=== PATIENT | female | born 1990 | race Caucasian/White ===

== ENCOUNTER 2022-11-10 14:40 | Outpatient (REF) | payer MEDICAID, SELFPAY ==
[2022-11-10 20:03] LABS: Free T4 (Free Thyroxine) 0.87 ng/dL (0.71-1.85); Thyroid Stimulating Hormone 0.98 uIU/mL (0.32-4.0)
== END 2022-11-10 14:41 | disposition home or self-care (01) ==
LOC: HO.MANLDS 14:40
PROVIDERS: Visit Provider Physician Assistant
DX: D64.9 Anemia, unspecified (principal); Z83.49 Family history of other endocrine, nutritional and metabolic diseases
CPT/HCPCS: 36415; 84439; 84443; 86900; 86901

== ENCOUNTER → 2023-12-17 13:51 | Outpatient (BNVA) | payer SELFPAY | PROVIDERS: PCP Internal Medicine; Visit Provider Physician Assistant | DX: Z02.1 Encounter for pre-employment examination (principal) ==

== ENCOUNTER 2024-12-14 16:21 | Outpatient (REF) | payer SELFPAY ==
[2024-12-14 18:35] LABS: MANUAL DIFF FLAG NO
[2024-12-14 18:49] LABS: Basophils Absolute Auto 0.1 X10*3/uL (0.0-0.2); Basophils Percent Auto 0.6 % (0-2); Eosinophils Absolute Auto 0.2 X10*3/uL (0.0-0.4); Eosinophils Percent Auto 1.7 % (0-4); Hematocrit 41.1 % (37.0-47.0); Hemoglobin 13.4 g/dl (12.0-16.0); Imm Gran Abs Auto 0.03 X10*3/uL (0.00-0.03); Imm Gran Pct Auto 0.3 % (0.0-0.4); Lymphocytes Absolute Auto 2.8 X10*3/uL (1.2-4.9); Lymphocytes Percent Auto 32.1 % (20-40); Mean Corpuscular HGB Conc 32.6 g/dl (31.0-35.0); Mean Corpuscular Hemoglobin 29.7 pg (27.0-33.0); Mean Corpuscular Volume 91.1 fL (80.0-98.0); Mean Platelet Volume 9.6 fL (9.4-12.3); Monocytes Absolute Auto 0.7 X10*3/uL (0.1-1.2); Monocytes Percent Auto 8.2 % (2-11); Neutrophils Percent Auto 57.1 % (45-73); Platelet Count 381 X10*3/uL (160-400); Red Blood Count 4.51 X10*6/uL (4.20-5.50); Red Cell Distribution Width 13.4 % (11.0-16.0); White Blood Count 8.8 X10*3/uL (4.8-10.8)
[2024-12-14 18:53] LABS: Estimated Average Glucose 105 mg/dL; Hemoglobin A1c % 5.3 % (<6.0)
[2024-12-14 19:01] LABS: Alanine Aminotransferase 22 U/L (0-31); Albumin Level 4.3 g/dL (3.5-5.0); Alkaline Phosphatase 82 U/L (39-117); Anion Gap 12 (12-20); Aspartate Amino Transferase 25 U/L (5-31); Bilirubin Total 0.2 mg/dL (0.0-1.0); Blood Urea Nitrogen 12 mg/dL (9-16); Calcium 9.3 mg/dL (8.4-10.2); Carbon Dioxide 25 mmol/L (22-29); Chloride 106 mmol/L (96-108); Estimated Glomerular Filt Rate > 60; Glucose Random 87 mg/dL (60-115); Iron 80 mcg/dL (30-160); Percent Iron Saturation 24 % (15-50); Potassium 3.5 mmol/L (3.3-5.1); Sodium 139 mmol/L (135-145); Total Iron Binding Capacity 329 mcg/dL (228-428); Total Protein 7.7 g/dL (6.5-8.0); Unsaturated Iron Binding 249 ug/dL
[2024-12-14 19:20] LABS: Ferritin 16 ng/mL (10-122); Thyroid Stimulating Hormone 1.89 uIU/mL (0.32-4.0)
--- OUTSIDE RECORDS SUMMARY | 2024-12-14 19:42 | XMS_ITS | Patient Health Record ---
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 Name Role Phone BOBBY MELGAR Unavailable [phone] CAREN COULTER Unavailable [phone] IWLLIAM CRAIN Unavailable [phone] RONNIE SCHAFER Unavailable [phone] Thiago Padilla Unavailable [phone] Allergies Allergen (clinical drug ingredient) Drug/Non Drug Allergy documented on EMR Reaction Allergy Type Onset Date Status Rabbit dander Rabbit dander (uncoded) Unknown Allergy Active Cat dander Cat Dander Unknown Allergy Active Dust Mites Unknown Allergy Active Latex Latex Unknown Allergy Active Mold Unknown Allergy Active Pollen Pollen Unknown Allergy Active Results Component Value Reference Range Notes HIV Ab/p24 Ag with Reflex-[id number] Reviewed date:02/17/2024 03:48:47 PM Interpretation:Negative Performing Lab: Notes/Report: Negative HIV Ab/p24 Ag Screen Neg T pallidum Screening [place] -[id number] Reviewed date:02/17/2024 03:48:33 PM Interpretation:Negative Performing Lab: Notes/Report: Negative T pallidum Antibodies Neg APTIMA COMBO 2 CT/NG, Urine Reviewed date:02/17/2024 03:49:01 PM Interpretation:Negative Performing Lab:[facility], [address] [facility], [place], [address] Chilo Quiles DO Notes/Report: GONORRHEA, AMPLIFIED NEGATIVE NEGATIVE CHLAMYDIA, AMPLIFIED NEGATIVE NEGATIVE DNA Test Results SEX: F : 1990 AGE: 33 [id number] CLINIC ID: [id number] SS: PHYSICIAN: WILLIAM CRAIN MOLD CHIPPER COLLECTED BY: [id number] Specimen Source: Urine Specimen Type: Urine, Gris PCR Medium Neisseria gonorrhoeae: NEGATIVE Normal Value: Negative Chlamydia trachomatis: NEGATIVE Normal Value: Negative NuSwab VG+, Laura 6sp-1800 68 Reviewed date:02/17/2024 10:20:18 AM Interpretation:Positive BV, yeast and trich Performing Lab:[facility], [address] [place] [address], [place], Phone - [phone], Director - Felice Notes/Report: Test(s) 937987-Hzcjhvt albicans, CRISTAL; 317733-Dxwqrsi glabrata, CRISTAL; 763339-K parapsilosis/tropicalis; 987843-Wnchlrm lusitaniae, CRISTAL; 645831-Yysnttb krusei, CRISTAL was developed and its performance characteristics determined by [facility]. It has not been cleared or approved by the Food and Drug Administration. Atopobium vaginae Moderate - 1 BVAB 2 Moderate - 1 Megasphaera 1 High - 2 Calculate total score by adding the 3 individual bacterial vaginosis (BV) marker scores together. Total score is interpreted as follows: Total score 0-1: Indicates the absence of BV. Total score 2: Indeterminate for BV. Additional clinical data should be evaluated to establish a diagnosis. Total score 3-6: Indicates the presence of BV. . This test was developed and its performance characteristics determined by [facility]. It has not been cleared or approved by the Food and Drug Administration. Laura albicans, CRISTAL Positive Negative Laura glabrata, CRISTAL Negative Negative C parapsilosis/tropicalis Negative Negative Th is assay does not differentiate C. tropicalis and C. parapsilosis. Laura lusitaniae, CRISTAL Negative Negative Laura krusei, CRISTAL Negative Negative Trich vag by CRISTAL Positive Negative Chlamydia trachomatis, CRISTAL Negative Negative Neisseria gonorrhoeae, CRISTAL Negative Negative Wet Mount Reviewed date:08/11/2024 08:48:00 AM Interpretation:Few clue seen ,no whiff Performing Lab: Notes/Report: Few clue seen ,no whiff Clue Cells none WBC none Hyphae none Trichomonas none pH 4.5 GELY Prep no whiff or hyphae HCV Antibody-[id number] Reviewed date:09/21/2024 09:45:41 AM Interpretation:Non-reactive Performing Lab:[facility] [place], [address], [address], [place], Phone - [phone], Director - [facility] Notes/Report: Hep C Virus Ab Non Reactive Non Reactive HCV antibody alone does not differentiate between previously resolved infection and active infection. Equivocal and Reactive HCV antibody results should be followed up with an HCV RNA test to support the diagnosis of active HCV infection. Ct/GC CRISTAL, Pharyngeal-[id number] Reviewed date:09/21/2024 09:46:16 AM Interpretation:Negative Performing Lab:[facility] [place], [address], [address], [place], Phone - [phone], Director - [facility] Notes/Report: C. trachomatis, CRISTAL, Pharyn Negative Negative N. gonorrhoeae, CRISTAL, Pharyn Negative Negative Chlamydia/GC Amplification-1 [id number] Reviewed date:09/21/2024 09:45:56 AM Interpretation:Negative Performing Lab:[facility] [place], [address], [address], [place], Phone - [phone], Director - [facility] Notes/Report: Chlamydia trachomatis, CRISTAL Negative Negative Neisseria gonorrhoeae, CRISTAL Negative Negative HIV Ab/p24 Ag with Reflex-08 [id number] Reviewed date:09/21/2024 09:45:31 AM Interpretation:Non-reactive Performing Lab:[facility] [place], [address], [address], [place], Phone - [phone], Director - [facility] Notes/Report: HIV Ab/p24 Ag Screen Non Reactive Non Reactive HIV-1/HIV-2 antibodies and HIV-1 p24 antigen were NOT detected. There is no laboratory evidence of HIV infection. HIV Negative T pallidum Screening [place] -[id number] Reviewed date:09/21/2024 09:45:20 AM Interpretation:Non-reactive Performing Lab:[facility] [place], [address], [address], [place], Phone - [phone], Director - [facility] Notes/Report: T pallidum Antibodies Non Reactive Non Reactive NuSwab VG+, Laura 6sp-1800 68 Reviewed date:08/12/2024 01:30:13 PM Interpretation: Performing Lab:[facility] [place], [address] [place] [address], [place], Phone - [phone], Director - Felice Notes/Report: Test(s) 861325- Atopobium vaginae; 279849- BVAB 2; 925332- Megasphaera 1 was developed and [facility] performance characteristics [facility]. It has not been cleared or approved by the Food and Drug Administration. Test(s) 720476-Pmuimzx albicans, CRISTAL; 147645-Emoifeu glabrata, CRISTAL; 330248-Y parapsilosis/tropicalis; 060780-Zqlpvcp lusitaniae, CRISTAL; 195774-Ekdnqqs krusei, CRISTAL was developed and its performance characteristics determined [facility]. It has not been cleared or approved by the Food and Drug Administration. Atopobium vaginae High - 2 BVAB 2 High - 2 Megasphaera 1 High - 2 Calculate total score by adding the 3 individual bacterial vaginosis (BV) marker scores together. Total score is interpreted as follows: Total score 0-1: Indicates the absence of BV. Total score 2: Indeterminate for BV. Additional clinical data should be evaluated to establish a diagnosis. Total score 3-6: Indicates the presence of BV. Laura albicans, CRISTAL Negative Negative Laura glabrata, CRISTAL Negative Negative C parapsilosis/tropicalis Negative Negative Th is assay does not differentiate C. tropicalis and C. parapsilosis. Laura lusitaniae, CRISTAL Negative Negative Laura krusei, CRISTAL Negative Negative Trich vag by CRISTAL Negative Negative Chlamydia trachomatis, CRISTAL Negative Negative Neisseria gonorrhoeae, CRISTAL Negative Negative NuSwab VG+, Laura 6sp-1800 68 Reviewed date:03/16/2024 11:08:00 AM Interpretation:Positive BV and yeast, otherwise neg Performing Lab:[facility], [address] [facility], [place], Phone - [phone], Director - Felice Notes/Report: Test(s) 260600- Atopobium vaginae; 613970- BVAB 2; 135609- Megasphaera 1 was developed and its performance characteristics determined by [facility]. It has not been cleared or approved by the Food and Drug Administration. Test(s) 223107-Guqanjq albicans, CRISTAL; 303099-Pvtrgbn glabrata, CRISTAL; 150380-D parapsilosis/tropicalis; 081604-Udeurvq lusitaniae, CRISTAL; 632276-Elmmgny krusei, CRISTAL was developed and its performance characteristics determined by [facility]. It has not been cleared or approved by the Food and Drug Administration. Atopobium vaginae High - 2 BVAB 2 High - 2 Megasphaera 1 Low - 0 Calculate total score by adding the 3 individual bacterial vaginosis (BV) marker scores together. Total score is interpreted as follows: Total score 0-1: Indicates the absence of BV. Total score 2: Indeterminate for BV. Additional clinical data should be evaluated to establish a diagnosis. Total score 3-6: Indicates the presence of BV. Laura albicans, CRISTAL Positive Negative Laura glabrata, CRISTAL Negative Negative C parapsilosis/tropicalis Negative Negative Th is assay does not differentiate C. tropicalis and C. parapsilosis. Laura lusitaniae, CRISTAL Negative Negative Laura krusei, CRISTAL Negative Negative Trich vag by CRISTAL Negative Negative Chlamydia trachomatis, CRISTAL Negative Negative Neisseria gonorrhoeae, CRISTAL Negative Negative Wet Mount Reviewed date:03/09/2024 04:17:47 PM Interpretation:Abnormal Performing Lab: Notes/Report: Abnormal Clue Cells present WBC few Hyphae preseent Trichomonas neg pH 5.0 GELY Prep hyphae, pos whiff Reason For Referral No Information Medications Medication SIG (Take, Route, Frequency, Duration) Notes Start Date End Date Status Multivitamin Active MetroGel-Vaginal 0.75 % 1 application at bedtime Vaginal Once a day for 5 days 03/09/2024 Not-Taking Fluconazole 150 MG 1 tablet Orally 1 ta blet today and another in 3-4 days if needed for 10 day(s) 03/09/2024 Not-Taking Vitamin D Not-Taking Probiotic Not-Taking Social History Sex Assigned At : Social History Observation Description Sex Assigned At Female Section Notes: Aptima/ bw Vital Signs Blood pressure diastolic 10 mm Hg 09/19/2024 Dec lines vitals Height 20 in 09/19/2024 Declines vitals Blood pressure systolic 20 mm Hg 09/19/2024 Decl francesca vitals Weight 5 lbs 09/19/2024 Declines vitals BMI 8.79 kg/m2 09/19/2024 Declines vitals Encounters Encounter Location Date Provider Diagnosis [address] [place], [place] [id number] 02/09/2024 WILLIAM CRAIN Encounter for screen ing for infections with a predominantly sexual mode of transmission Z11.3 ; Counseling, unspecified Z71.9 ; Noninflammatory disorder of vagina, unspecified N89.9 and Vaginal discharge N89.[address] [id number] 02/03/2024 WILLIAM CRAIN Encounter for screen ing for infections with a predominantly sexual mode of transmission Z11.3 ; Vaginal discharge N89.8 ; Counseling, unspecified Z71.9 and HIV Screening Z11.[address] [id number] 03/09/2024 WILLIAM CRAIN Encounter for screen ing for infections with a predominantly sexual mode of transmission Z11.3 ; Acute candidiasis of vulva and vagina B37.31 ; Counseling, unspecified Z71.9 and Acute vaginitis N76.[address] [id number] 08/08/2024 BOBBY MELGAR Encounter for screen ing for infections with a predominantly sexual mode of transmission Z11.3 ; Other problems related to lifestyle Z72.89 ; Encounter for screening for other infectious and parasitic diseases Z11.8 ; Counseling/Contraceptiv e Advice Z30.09 and Vaginal Itch L29.[address] [id number] 09/19/2024 BOBBY MELGAR Encounter for screen ing for infections with a predominantly sexual mode of transmission Z11.3 ; Other problems related to lifestyle Z72.89 ; Encounter for screening for other viral diseases Z11.59 ; Contact with and (suspected) exposure to infections with a predominantly sexual mode of transmission Z20.2 ; Encounter for screening for human immunodeficiency virus [HIV] Z11.4 and Encounter for other general counseling and advice on contraception Z30.09 [facility] [address] [id number] 12/15/2023 Thiago Padilla [address] [id number] 12/28/2023 Thiago Padilla Vaginal Itch L29.[address] [id number] 02/11/2024 [facility]ago Padilla [facility] [address] [id number] 02/12/2024 WILLIAM CRAIN [place] [address] [address] [facility] [address] [place], [place] [id number] 03/16/2024 WILLIAM CRAIN Assessments Encounter Date Diagnosis (ICD Code) Assessment Notes Treatment Notes Treatment Clinical Notes Section Notes 12/28/2023 Vaginal Itch (ICD-10 - L29.3) 02/03/2024 Encounter for screening for infections with a predominantly sexual mode of transmission (ICD-10 - Z11.3) Discussed STI's, risk factors, symptoms and infection windows. Encouraged condom use. Need 2 out of 3 Sections from A-C Section A) Problems (only need one from below) One acute or uncomplicated illness/injury Section B) Data (at least one of the following categories in this section) Category 1: (Choose 2 of the following): Review of prior external notes Order unique tests Review test results (each unique test counts as one) 02/03/2024 Vaginal discharge (ICD-10 - N89.8) Recommended no douching/soaps/p otential irritants, safe sex and condom use. She will return after menses for vag swab collection Need 2 out of 3 Sections from A-C Section A) Problems (only need one from below) One acute or uncomplicated illness/injury Section B) Data (at least one of the following categories in this section) Category 1: (Choose 2 of the following): Review of prior external notes Order unique tests Review test results (each unique test counts as one) 02/09/2024 Encounter for screening for infections with a predominantly sexual mode of transmission (ICD-10 - Z11.3) 03/09/2024 Encounter for screening for infections with a predominantly sexual mode of transmission (ICD-10 - Z11.3) Bacterial vaginosis and yeast Need 2 out of 3 Sections from A-C Section A) Problems (only need one from below) One acute or uncomplicated illness/injury Section B) Data (at least one of the following categories in this section) Category 1: (Choose 2 of the following): Review of prior external notes Order unique tests Review test results (each unique test counts as one) 08/08/2024 Encounter for screening for infections with a predominantly sexual mode of transmission (ICD-10 - Z11.3) Spent 20 minutes doing the following : Chart Prep Obtaining /reviewing HPI Client aware STI testing not accurate for most recent partner Plans to RTC to F/U PE performed and aptima /Wet Mount collected Reviewed NIL Wet Mount ,few clue ,no yeast seen,no whiff Client declines tx today Discussed product use in genital area ,advised to D/C ,any scented menstrual products Given info on healthyvaginal care ,can use Vitamin E oil topically hs x 1 week to see if helps,also Boric Acid supps Counseled re 100% safer sex /condom use with ovulation ,Plan B Rx RTC if sxs persist after care Client agrees to plan Visit documented . 08/08/2024 Other problems related to lifestyle (ICD-10 - Z72.89) 03/09/2024 Acute candidiasis of vulva and vagina (ICD-10 - B37.31) Bacterial vaginosis and yeast Need 2 out of 3 Sections from A-C Section A) Problems (only need one from below) One acute or uncomplicated illness/injury Section B) Data (at least one of the following categories in this section) Category 1: (Choose 2 of the following): Review of prior external notes Order unique tests Review test results (each unique test counts as one) 09/19/2024 Encounter for screening for infections with a predominantly sexual mode of transmission (ICD-10 - Z11.3) Spent 20 minutes doing the following : Chart Prep Obtaining /reviewing HPI Aware of ways to prevent BV ,states using Baking Soda Sitz 'every so often ' All tests collected . Reviewed FAM ,and safer sex /condom use if not seeking Aware of Rx Plan B Advised to RTC for accurate UPT if no menses Visit documented . 09/19/2024 Other problems related to lifestyle (ICD-10 - Z72.89) 09/19/2024 Encounter for screening for other viral diseases (ICD-10 - Z11.59) 03/09/2024 Counseling, unspecified (ICD-10 - Z71.9) Bacterial vaginosis and yeast Need 2 out of 3 Sections from A-C Section A) Problems (only need one from below) One acute or uncomplicated illness/injury Section B) Data (at least one of the following categories in this section) Category 1: (Choose 2 of the following): Review of prior external notes Order unique tests Review test results (each unique test counts as one) 08/08/2024 Encounter for screening for other infectious and parasitic diseases (ICD-10 - Z11.8) 02/09/2024 Counseling, unspecified (ICD-10 - Z71.9) 02/03/2024 Counseling, unspecified (ICD-10 - Z71.9) Need 2 out of 3 Sections from A-C Section A) Problems (only need one from below) One acute or uncomplicated illness/injury Section B) Data (at least one of the following categories in this section) Category 1: (Choose 2 of the following): Review of prior external notes Order unique tests Review test results (each unique test counts as one) 02/09/2024 Noninflammatory disorder of vagina, unspecified (ICD-10 - N89.9) 02/03/2024 HIV Screening (ICD-10 - Z11.4) Need 2 out of 3 Sections from A-C Section A) Problems (only need one from below) One acute or uncomplicated illness/injury Section B) Data (at least one of the following categories in this section) Category 1: (Choose 2 of the following): Review of prior external notes Order unique tests Review test results (each unique test counts as one) 03/09/2024 Acute vaginitis (ICD-10 - N76.0) Long discussion about soaps, diet, natural prevention and treatment of BV and yeast. Info given. Disp samples of boric acid, ed re use. Encouraged condoms for at least one month post BV tx. Bacterial vaginosis and yeast Need 2 out of 3 Sections from A-C Section A) Problems (only need one from below) One acute or uncomplicated illness/injury Section B) Data (at least one of the following categories in this section) Category 1: (Choose 2 of the following): Review of prior external notes Order unique tests Review test results (each unique test counts as one) 08/08/2024 Counseling/Contrace ptive Advice (ICD-10 - Z30.09) 09/19/2024 Contact with and (suspected) exposure to infections with a predominantly sexual mode of transmission (ICD-10 - Z20.2) 09/19/2024 Encounter for screening for human immunodeficiency virus [HIV] (ICD-10 - Z11.4) 08/08/2024 Vaginal Itch (ICD-10 - L29.3) 02/09/2024 Vaginal discharge (ICD-10 - N89.8) 09/19/2024 Encounter for other general counseling and advice on contraception (ICD-10 - Z30.09) 02/03/2024 Other Client was seen by STEPHAN Godoy- student under my supervision. Need 2 out of 3 Sections from A-C Section A) Problems (only need one from below) One acute or uncomplicated illness/injury Section B) Data (at least one of the following categories in this section) Category 1: (Choose 2 of the following): Review of prior external notes Order unique tests Review test results (each unique test counts as one) Plan Of Treatment Pending Test Test Name Order Date HEPATITIS C ANTIBODY 06/02/2023 HIV ANTIBODY/ANTIGEN, 4TH GENERATION SYPHILIS TESTING 06/02/2023 Insurance Providers Payer Name Payer Address Payer Phone Subscriber Number Group Number Insured Name Patient Relationship to Insured Coverage Start Date Coverage End Date [place] ATT CLAIMS [address] [place] [address] [id number] Arcelia Arreaga Self - patient is the insured Medical (General) History Medical History History ICD Code Migraines/ severe headaches Depression/Anxiety Sexually transmitted infecti ons, CT in past, 07/2022 tx'd by [facility] Vaginal infections HPV/ genital warts Clt reports fainting concern s, once every few years, has had testing but not able to identify particular concern Hospitalization History Reason Date(Month/Year) Fainting concerns 2018
--- OUTSIDE RECORDS SUMMARY | 2024-12-14 19:42 | XMS_ITS ---
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 Name Role Phone BOBBY MELGAR Unavailable [phone] Allergies Allergen (clinical drug ingredient) Drug/Non Drug Allergy documented on EMR Reaction Allergy Type Onset Date Status Rabbit dander Rabbit dander (uncoded) Unknown Allergy Active Cat dander Cat Dander Unknown Allergy Active Dust Mites Unknown Allergy Active Latex Latex Unknown Allergy Active Mold Unknown Allergy Active Pollen Pollen Unknown Allergy Active Results Component Value Reference Range Notes T pallidum Screening Noble -[id number] Reviewed date:09/21/2024 09:45:20 AM Interpretation:Non-reactive Performing Lab:[facility] [place], [address], [address], [place], Phone - [phone], Director - [facility] Notes/Report: T pallidum Antibodies Non Reactive Non Reactive HIV Ab/p24 Ag with Reflex-[id number] Reviewed date:09/21/2024 09:45:31 AM Interpretation:Non-reactive Performing Lab:[facility] [place], [address], [address], [place], Phone - [phone], Director - [facility] Notes/Report: HIV Ab/p24 Ag Screen Non Reactive Non Reactive HIV-1/HIV-2 antibodies and HIV-1 p24 antigen were NOT detected. There is no laboratory evidence of HIV infection. HIV Negative Chlamydia/GC Amplification-[id number] Reviewed date:09/21/2024 09:45:56 AM Interpretation:Negative Performing Lab:[facility] [place], [address], [address], [place], Phone - [phone], Director - [facility] Notes/Report: Chlamydia trachomatis, CRISTAL Negative Negative Neisseria gonorrhoeae, CRISTAL Negative Negative Ct/GC CRISTAL, Pharyngeal-[id number] Reviewed date:09/21/2024 09:46:16 AM Interpretation:Negative Performing Lab:[facility] [place], [address], [address], [place], Phone - [phone], Director - [facility] Notes/Report: C. trachomatis, CRISTAL, Pharyn Negative Negative N. gonorrhoeae, CRISTAL, Pharyn Negative Negative HCV Antibody-[id number] Reviewed date:09/21/2024 09:45:41 AM Interpretation:Non-reactive Performing Lab:[facility] [place], [address], [address], [place], Phone - [phone], Director - [facility] Notes/Report: Hep C Virus Ab Non Reactive Non Reactive HCV antibody alone does not differentiate between previously resolved infection and active infection. Equivocal and Reactive HCV antibody results should be followed up with an HCV RNA test to support the diagnosis of active HCV infection. REASON FOR VISIT Routine Testing ,no sxs .Aware of test accuracy .New partner since last STI testing at in 07/2024 ., Hx of + BV ,no sxs currently . Medications Medication SIG (Take, Route, Frequency, Duration) [...] History Observation Description Sex Assigned At Female Vital Signs Blood pressure systolic 20 mm Hg 09/19/20 24 Blood pressure diastolic 10 mm Hg 024 Height 20 in 09/19/2024 Weight 5 lbs 09/19/2024 BMI 8.79 kg/m2 09/19/2024 Declines vitals Encounters Encounter Location Date Provider Diagnosis [address] [place], [place] [id number] 09/19/2024 BOBBY MELGAR Encounter for screen ing [...] general counseling and advice on contraception Z30.09 Assessments Encounter Date Diagnosis (ICD Code) Assessment Notes Treatment Notes Treatment Clinical Notes Section Notes 09/19/2024 Encounter for screening for infections with [...] for other viral diseases (ICD-10 - Z11.59) 09/19/2024 Contact with and (suspected) exposure to infections with a predominantly sexual mode of transmission (ICD-10 - Z20.2) 09/19/2024 Encounter for screening for human immunodeficiency virus [HIV] (ICD-10 - Z11.4) 09/19/2024 Encounter for other general counseling and advice on contraception (ICD-10 - Z30.09) Plan Of Treatment Treatment Notes Assessment Notes Encounter for screening for infections with a predominantly sexual mode of transmission Spent 20 minutes doing the following : Chart Prep Obtaining /reviewing HPI Aware of ways to prevent BV ,states using Baking Soda Sitz 'every so often ' All tests collected . Reviewed FAM ,and safer sex /condom use if not seeking Aware of Rx Plan B Advised to RTC for accurate UPT if no menses Visit documented . Next Appt Details Follow Up: prn, Reason: Progress Notes * Arcelia KIMBROUGHDOB:1990 (33 yo F)Acc No.[id number]:09/19/2024 Progress Notes Patient:?Arcelia KIMBROUGH Provider:?Bobby Bray CNM :1990???Age:33 Y???Sex:Female D ate:09/19/2024 Address:[address], [address], [place], [id number] Subjective: * Chief Complaints: * ???Routine Testing ,no sxs . Aware of test accuracy .New partner since last STI testing at in 07/2024 .Hx of + BV ,no sxs currently . * HPI: ???Visit Narrative:?Reason for the visit:?Routine Screening.?Current form of control:?Natural cycle tracking.?LMP:?08/29/2024.?Last date of UPI:?09/12/2024,not seeking ?.?Other Notes for the Clinician:?Clt presents for routine screening. Clt is interested in urine and oral Gc/Ct aptimas and HIV, HCV, RPR bloodwork. Clt is currently sexually active with one AMAB partner, last UPI was 09/12/2024 and clt has been counseled on window periods. Clt has no other questions for counselor at this time.? * ROS:?As above. * Medical History:? 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 control:?Client tracks her cycle.?Last menstrual period:?08/29/2024.?Last pap smear date:?2022- NIL.?Menarche: ?Age of menarche?13 ???Periods:?every month, normal blood loss, every 26 days.?Sexual activity:?currently sexually active, with men.?Sexually Transmitted Diseases (STDs):?Chlamydia 2021 .Human papilloma virus (HPV)/condyloma 2009,.?Unprotected sex in the past 10 days?:?Yes.? * OB History:?Total pregnancies:?1.?Total living children:?0.?(s):?1.? * Surgical History:?No Surgica l History documented. * Hospitalization/Major Diagno stic Procedure:?Fainting concerns 2019 * Family History:? Father: prostate cancer, HBP, AFIB Mother's side: Diabetes type 2, acute stroke caused by a narrowing in artery from plaque buildup? Sister: plantar fasciitis. * Social History:?Food Access:?Food Access?The Client's current access to food is?Secure Food Access ???Housing:?Housing?The client's current living situation is:?stable housing ???Sexual History:?Sexual History?Sexual History Reviewed:?Partners, Practices, Protection/Past STIs, Prevention of , ___ ?Currently sexually active??Yes ?Sexually active with:?Assigned Male at 1 ?Your sexual activities include:?oral intercourse, vaginal intercourse ?Do you use condoms??Yes ?Condoms are used:?occasionally ?Date of last unprotected intercourse:?09/12/2024 ?Number of partners in past 3 months:?1 ???PrEP for HIV:?PrEP for HIV?Is the client interested in beginning/continuing PrEP for HIV??No ???Relationships:?Relationships?Has the client experienced any of the following:?Harmful Relationships in the past - feeling safe with everyone in their life as of 09/19/2024 ?Emotionally?Yes ?Currently:?No ?Physically:?Yes ?Currently:?No ?Sexually:?Yes ?Currently?No ???Tobacco Use:?Tobacco Use?Do you/have you used tobacco??No ?Tobacco Smoking Status?Never smoker ???Drugs/Alcohol:?Drug/Alcohol Use?Do you or have you used drugs??Yes, currently ?By what route are you taking drugs? Please check all that apply:?Smoking ?Which drug(s) do you smoke??Marijuana ?When did you last use??-2023 ?Do you want to quit drugs??No ?Do you or have you used alcohol??Yes, currently Socially * Medications:?TakingMultivita min Taking Multivitamin Not-Taking/PRNProbiotic Vitamin D Fluconazole 150 MG Tablet 1 tablet Orally 1 tablet today and another in 3-4 days if needed MetroGel-Vaginal 0.75 % Gel 1 application at bedtime Vaginal Once a day Medication List reviewed and reconciled with the patientNot-Taking/PRN Probiotic Not-Taking/PRN Vitamin D Not-Taking/PRN Fluconazole 150 MG Tablet 1 tablet Orally 1 tablet today and another in 3-4 days if needed Not-Taking/PRN MetroGel-Vaginal 0.75 % Gel 1 application at bedtime Vaginal Once a day Medication List reviewed and reconciled with the patient * Allergies:?Dust MitesMoldPol lenCat DanderRabbit danderLatexno[Allergies Verified] Objective: * Vitals:?BP:20/10mm Hg, Ht: 2 0 in, Wt:5lbs, BMI:8.79Index, Ht-cm: 50.8, Wt-k.27. Declines vitals. * Examination: ???General Examination: ?GENERAL APPEARANCE:?pleasant, in no acute distress.?PSYCH:? alert, oriented.?Declines PE. Assessment: * Assessment: 1.?Encounter for screening f or infections with a predominantly sexual mode of transmission - Z11.3 (Primary)???2.?Other problems related to lifestyle - Z72.89???3.?Encounter for screening for other viral diseases - Z11.59???4.?Contact with and (suspected) exposure to infections with a predominantly sexual mode of transmission - Z20.2???5.?Encounter for screening for human immunodeficiency virus [HIV] - Z11.4 ??6.?Encounter for other general counseling and advice on contraception - Z30.09??? Plan: * Treatment: ? Value Reference Range ?T pallidum Antibodies Non Reactive N on Reactive - * This lab was reviewed by CARMEN MELGAR on 09/21/2024 at 09:45 AM EST ?LAB: Chlamydia/GC Amplification-[id number] (Collection Date & Time - 09/19/2024 05:26 PM)* ? Value Reference Range ?Chlamydia trachomatis, CRISTAL Negative Negative - * ?Neisseria gonorrhoeae, CRISTAL Negative Negative - * This lab was reviewed by CARMEN MELGAR on 09/21/2024 at 09:45 AM EST ?LAB: Ct/GC CRISTAL, Pharyngeal-[id number] (Collection Date & Time - 09/19/2024 05:26 PM)* ? Value Reference Range ?C. trachomatis, CRISTAL, Pharyn Negative Negative - * ?N. gonorrhoeae, CRISTAL, Pharyn Negative Negative - * This lab was reviewed by CARMEN MELGAR on 09/21/2024 at 09:46 AM EST Notes: Spent 20 minutes doing the following : Chart Prep Obtaining /reviewing HPI Aware of ways to prevent BV ,states using Baking Soda Sitz 'every so often ' All tests collected . Reviewed FAM ,and safer sex /condom use if not seeking Aware of Rx Plan B Advised to RTC for accurate UPT if no menses Visit documented .??2.?Other problems related to lifestyle?LAB: T pallidum Screening Noble-[id number] (Collection Date & Time - 09/19/2024 05:26 PM)* ? Value Reference Range ?T pallidum Antibodies Non Reactive N on Reactive - * This lab was reviewed by CARMEN MELGAR on 09/21/2024 at 09:45 AM EST ?LAB: Chlamydia/GC Amplification-[id number] (Collection Date & Time - 09/19/2024 05:26 PM)* ? Value Reference Range ?Chlamydia trachomatis, CRISTAL Negative Negative - * ?Neisseria gonorrhoeae, CRISTAL Negative Negative - * This lab was reviewed by CARMEN MELGAR on 09/21/2024 at 09:45 AM EST ?LAB: Ct/GC CRISTAL, Pharyngeal-[id number] (Collection Date & Time - 09/19/2024 05:26 PM)* ? Value Reference Range ?C. trachomatis, CRISTAL, Pharyn Negative Negative - * ?N. gonorrhoeae, CRISTAL, Pharyn Negative Negative - * This lab was reviewed by CARMEN MELGAR on 09/21/2024 at 09:46 AM EST 3.?Encounter for screening for other viral diseases?LAB: HCV Antibody-[id number] (Collection Date & Time - 09/19/2024 05:26 PM)* ? Value Reference Range ?Hep C Virus Ab Non Reactive Non Reac tive - * This lab was reviewed by CARMEN MELGAR on 09/21/2024 at 09:45 AM EST 4.?Contact with and (suspected) exposure to infections with a predominantly sexual mode of transmission?LAB: HCV Antibody-[id number] (Collection Date & Time - 09/19/2024 05:26 PM)* ? Value Reference Range ?Hep C Virus Ab Non Reactive Non Reac tive - * This lab was reviewed by CARMEN MELGAR on 09/21/2024 at 09:45 AM EST 5.?Encounter for screening for human immunodeficiency virus [HIV]?LAB: HIV Ab/p24 Ag with Reflex-[id number] (Collection Date & Time - 09/19/2024 05:26 PM)* ? Value Reference Range ?HIV Ab/p24 Ag Screen Non Reactive No n Reactive - * This lab was reviewed by CARMEN MELGAR on 09/21/2024 at 09:45 AM EST * Procedure Codes:?38112 Chlam ydia - Amplified probe, Units: 2.00 37276 Gonorrhea - Amplified probe, Units: 2.00 * Follow Up:?prn * Billing Information: * Visit Code:? 69252 Existing - Low Complexity (IN USE). * Procedure Codes:? 29741 Chlamydia - Amplified probe. Units: 2.00. 19425 Gonorrhea - Amplified probe. Units: 2.00. * Sign off status: Completed true * Provider:?Bobby Bray CNM Date :?09/19/2024 Generated for Quique villalobos/Brittnee/eTransmitting on:?12/14/2024 07:42 PM EST History and Physical Notes * HPI (History of Present Illness) Category Sub-Category Detail Notes Category Not es Visit Narrative Reason for the visit: Routine Screenin g Current form of control: Natural c ycle tracking Other Notes for the Clinician: Clt prese nts for routine screening. Clt is interested in urine and oral Gc/Ct aptimas and HIV, HCV, RPR bloodwork. Clt is currently sexually active with one AMAB partner, last UPI was 09/12/2024 and clt has been counseled on window periods. Clt has no other questions for counselor at this time LMP: 08/29/2024 Last date of UPI: 09/12/2024,not seeki ng Examination Category Sub-Category Detail Notes Category Not es General Examination GENERAL APPEARANCE: pleasant, in n o acute distress Declines PE PSYCH: alert, oriented
--- OUTSIDE RECORDS SUMMARY | 2024-12-14 19:43 | XMS_ITS | Continuity of Care Document ---
Author Organization [facility], [facility] Address [address] [place] [address] Assessment No assessment recorded. Plan of Treatment Reminders Order Date Submit Date Provider Last Modified By Organization Details Last Modified Time Details Appointments FOLLOW UP 15 2024 04:00P STEPHON HAWKINS Not available Not available Not available Lab TSH + free T4, serum 2024 025 [facility], [address] [place] [address], [id number], 12/14/2024 16:19:28 T3, free, serum or plasma 2024 025 [facility], [address] [place] [address], [id number], 12/14/2024 16:19:28 hemoglobi n A1c, QN, blood 2024 025 [facility], [address] [place] [address], [id number], 12/14/2024 16:19:28 CMP, serum or plasma 2024 025 [facility], [address] [place] [address], [id number], 12/14/2024 16:19:28 CBC w/ auto diff 2024 025 [facility], [address] [place] [address], [id number], 12/14/2024 16:19:28 vitamin B12 + folate, serum or blood 2024 025 [facility], [address] [place] [address], [id number], 12/14/2024 16:19:28 iron + TIBC + ferritin, serum 2024 025 [facility], [address] [place], [id number], 12/14/2024 16:19:28 Referral None recorded. Procedures None recorded. Surgeries None recorded. Imaging None recorded. Medication Orders None recorded. Patient TargetsNo targets recorded. Patient InstructionsNo instructions recorded. Reason for Referral None Reported. Problems Name Problem SNOMED Code Status Onset Date Resolution Date Notes Provider Name and Address Organization Details Recorded Time Migraine 89524215 Active 2021 STEPHON DICKSON [address] [place] [address], [id number], [facility] 2 10:16:40 Allergic rhinitis 31535555 [facility] Eczema 11729837 Active 2021 STEPHON DICKSON [address] [place] [address], [address], [facility] 2 15:52:54 Syncope 626011893 Active 2021 STEPHON DICKSON [address] [place] [address], [phone], [facility] 2 15:53:11 Anxiety 34282708 Active 2021 STEPHON DICKSON [address] [place] [address], [address], [facility] 2 15:53:36 Depressive disorder 63701441 Active 2021 STEPHON DICKSON [address] [place] [address], [address], [facility] 2 15:53:42 Anemia 399452599 Active 2021 STEPHON DICKSON [address] [place], [address], [facility] 2 16:01:44 Irritable bowel syndrome 09828460 Active 2021 STEPHON DICKSON [address] [place], [address], [facility] 2 16:04:11 Cobalamin deficiency 584753164 Active 2021 Steve Hernandez, DO [address] [place], [address], [facility] 2 21:13:16 Terminatio n of 21631323 Active 2023 STEPHON DICKSON [address] [place], [address], [facility] 4 16:11:52 Notes: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 Medical Equipment None Reported. Allergies Allergen ID Allergen Name Allergen Category Reaction Reaction Severity Criticality Documentation Date Start Date Code Code System Note Provider Name and Address Organization Details Recorded Time 6148 POLLEN EXTRACTS environme nt,medica tion Not available Not available Not available 09/01/2022 40738 6 RxNorm Ramona Reyes [facility] 2 15:31:23 6149 cat dander environme nt Not available Not available Not available 09/01/2022 [id number] JOHN Reyes [facility] 2 15:31:30 6150 latex environme nt,medica tion Not available Not available Not available 09/01/2022 26489 91 [facility] 15:31:38 6151 rabbit dander environme nt Not available Not available Not available 09/01/2022 [id number] [facility] 15:31:55 6152 mold extract environme nt Not available Not available Not available 09/01/2022 17033 8 RxNorm Ramona villalba [facility] 2 15:32:03 Medications Name Sig Start Date Stop Date Status Note LastModified by Organization Details LastModified Time fluconazole 150 mg tablet TAKE 1 TABLET BY MOUTH TODAY AND TAKE ANOTHER TABLET BY MOUTH IN 3 TO 4 DAYS NEEDED 12/14 completed Not Available Not Available Not Available metronidazo le 0.75 % (37.5 mg/5 gram) vaginal gel APPLY 1 APPLICATI ON VAGINALLY AT BEDTIME FOR 5 DAYS 12/14 completed Not Available Not Available Not Available metronidazo le 500 mg tablet TAKE 1 TABLET BY MOUTH TWICE DAILY 12/14 completed Not Available Not Available Not Available doxycycline hyclate 100 mg tablet TAKE 1 TABLET BY MOUTH EVERY 12 HOURS FOR 7 DAYS 09/01 completed Not Available Not Available Not Available levonorgest rel 0.15 mg-ethinyl estradiol 30 mcg tablets,3 mos pack(91) TAKE 1 TABLET BY MOUTH EVERY DAY 09/01 completed Not Available Not Available Not Available Vitamin D3 11/24 completed Not Available Not Available Not Available Vitals Date Recorded Body height Body mass index (BMI) Body weight Heart rate Oxygen saturation Oxygen saturation in Arterial blood by Pulse oximetry Systolic blood pressure Diastolic blood pressure Provider Name and Address Organization Details Last Updated DateTime 5 160.02 cm 29.2 kg/m2 50577.6 6 g 76 /min 98 % 98 % 148 mm[Hg] 94 mm[Hg] Bharati Clayton [facility] 5 16:13:13 Social History Question Answer Notes LastModified by Organizat ion Details LastModified Time Tobacco Smoking Status Never Smoker did smoke weed prior, not anymore STEPHON DICKSON [address] [facility], [place], [address], [facility] 09/01/2022 15:46:02 Do You Have An Advance Directive? No Information not available 09/01/2022 What Is Your Level Of Alcohol Consumption? Occasional [email or web address] Information not available 09/01/2022 Are You Blind Or Do You Have Difficulty Seeing? No Information not available 09/01/2022 What Is Your Level Of Caffeine Consumption? Occasional Information not available 09/01/2022 In The 14 Days Before Symptom Onset, Have You Had Close Contact With A Laboratory-confi rmed COVID-19 While That Case Was Ill? No Information not available 09/01/2022 In The 14 Days Before Symptom Onset, Have You Had Close Contact With A Person Who Is Under Investigation For COVID-19 While That Person Was Ill? No Information not available 09/01/2022 Have You Been To An Area Known To Be High Risk For COVID-19? No Information not available 09/01/2022 Are You Currently Employed? No Unemployed Information not available 09/01/2022 Are You Deaf Or Do You Have Serious Difficulty Hearing? No Information not available 09/01/2022 What Type Of Diet Are You Following? REGULAR Eat Fairly Healthy Information not available 09/01/2022 What Is The Highest Grade Or Level Of School You Have Completed Or The Highest Degree You Have Received? [id number] Information not available 09/01/2022 How Many Days Of Moderate To Strenuous Exercise, Like A Brisk Walk, Did You Do In The Last 7 Days? 5 Information not available 09/01/2022 On Those Days That You Engage In Moderate To Strenuous Exercise, How Many Minutes, On Average, Do You Exercise? 5 Information not available 09/01/2022 Are There Any Guns Present In Your Home? No Information not available 09/01/2022 What Was The Date Of Your Most Recent Tobacco Screening? 12/14/2024 [email or web address] Information not available 12/14/2024 How Many Children Do You Have? -1 Information not available 09/01/2022 Do You Use Your Seat Belt Or Car Seat Routinely? Yes Information not available 09/01/2022 Are You Sexually Active? No Information not available 09/01/2022 Do You Have Smoke And Carbon Monoxide Detectors In Your Home? Yes Information not available 09/01/2022 Are You Passively Exposed To Smoke? No Information not available 09/01/2022 Do You Feel Stressed (tense, Restless, Nervous, Or Anxious, Or Unable To Sleep At Night)? [id number] Information not available 09/01/2022 Do You Use Any Illicit Or Recreational Drugs? No Information not available 09/01/2022 Do You Use Sunscreen Routinely? Yes Information not available 09/01/2022 Do You Or Have You Ever Used Any Other Forms Of Tobacco Or Nicotine? No Information not available 09/01/2022 Sex: Unknown Functional Status Question Answer Note LastModified by Organizat ion Details LastModified Time Do you have difficulty walking or climbing stairs? No Information not available 09/01/2022 Are you able to walk? YESWOREST Information not available 09/01/2022 Do you have difficulty doing errands alone? No Information not available 09/01/2022 Are you able to care for yourself? Yes Information not available 09/01/2022 Do you have difficulty dressing or bathing? Yes Information not available 09/01/2022 What is your exercise level? Occasional Information not available 09/01/2022 Mental Status Question Answer Note LastModified by Organization D etails LastModified Time Do you have difficulty concentrating, remembering or making decisions? No Information no t available 09/01/2022 Family History Relationship Description Onset Age of this Age Resolved Age Notes LastModified by Organization Details LastModified Time Maternal Aunt Diabetes mellitus [email or web address] Not available 2021 15:34:03 Maternal Aunt Diabetes mellitus [email or web address] Not available 2021 15:34:03 Father Hypertensive disorder [email or web address] Not available 2021 15:34:17 Father Malignant tumor of prostate Not available 2024 16:06:46 Paternal Grandfather Malignant tumor of prostate [email or web address] Not available 2024 16:06:46 Paternal Grandfather Malignant tumor of pancreas [email or web address] Not available 2024 16:06:46 Paternal Grandmother Malignant tumor of breast [email or web address] Not available 2024 16:06:46 Paternal Grandmother Acute stroke [email or web address] Not available 12/14/2024 16:06:46 Medical History No medical history recorded. Gynecological HistoryNo gynecological history recorded. Obstetrics History GPAL:G 0 P 0 0 1 0 Type Value Induced 1 Past Encounters Encounter ID Performer Location Encounter Start Date Encounter Closed Date Diagnosis/Indication Diagnosis SNOMED-CT Code Diagnosis ICD10 Code Diagnosis Note [id number] [facility] D[facility] [address] [facility],[place] [address] 12/14/2024 15:58:46 12/14/2024 16:52:30 Family history of diabetes mellitus type 2 346774173 Z83.3 will set up with lab work Family his tory of Hypothyroidism 197215567 Z83.49 family hx of thyroid disease, due for yearly screening Cobalamin deficiency 190 565522 E53.8 will set up with vitamin 12 screening, hx of cobalamin def, hasn't needed injections in awhile Health Concerns Section Related Observation LastModified by Organization Detai ls LastModified Time None Recorded Concern Status LastModified by Organization Details LastModified Time None Recorded Payers Encounter Date Sequence Insurance Name Policy Number Policy Galarza Covered Member ID Galarza Member ID Guarantor Name 12/14/2024 1 [facility] [id number] Arcelia Arreaga [id number] Arcelia Arreaga Notes Date Note Type Note Provider Name and Address Organization Details Recorded Time 5 text/html fu hypothyroidism screening patient would like bw to r/o hypothyroidismkeeps having recurrent yeast infection has fam hx of diabetes, recommended lab work added for a1c checkif not possible hormonal imbalance vs change from hormonal bc to natural bc will fu with patient after bw STEPHON DICKSON [address] [place], [address], [facility] 12/14/2024 16:23:27 OBGyn Episode No OBEpisode recorded.
--- OUTSIDE RECORDS SUMMARY | 2024-12-14 19:43 | XMS_ITS | Data Portability ---
Author Organization [facility] Home Service Address [address] [place] [address] Assessment Encounter Date Assessment Date Assessment LastModified by Organization Details LastModified Time 11/24/2023 11/24/2023 Patient agreed and verbally consents to this audio and video Telehealth appt via a secure platform [email or web address] Not available 11/24/2023 16:02:51 Plan of Treatment Reminders Order Date Submit Date Provider Last Modified By Organization Details Last Modified Time Details Appointments FOLLOW UP 15 2024 04:00P STEPHON HAWKINS Not available Not available Not available Lab TSH + free T4, serum 2024 025 [facility], [address] [place] [address], [id number], 12/14/2024 16:19:28 T3, free, serum or plasma 2024 025 [facility], [address] [place] [address], [id number], 12/14/2024 16:19:28 hemoglobi n A1c, QN, blood 2024 025 [facility], [address] [place] [address], [id number], 12/14/2024 16:19:28 CMP, serum or plasma 2024 025 [facility], [address] [place] [address], [id number], 12/14/2024 16:19:28 CBC w/ auto diff 2024 025 [facility], [address] [place] [address], [id number], 12/14/2024 16:19:28 vitamin B12 + folate, serum or blood 2024 025 [facility], [address] [place] [address], [id number], 12/14/2024 16:19:28 iron + TIBC + ferritin, serum 2024 025 [facility], [address] [place] [address], [id number], 12/14/2024 16:19:28 TSH + free T4, serum 2023 024 [facility] (Centralized Electronic Ordering - All Locations), Patient Can Go To The Location Of Their Choice, 11/24/2023 16:13:58 thyroid peroxidas e (tpo) Ab, serum 2023 024 [facility] (Centralized Electronic Ordering - All Locations), Patient Can Go To The Location Of Their Choice, 11/24/2023 16:13:58 T3, total, serum 2023 024 [facility] (Centralized Electronic Ordering - All Locations), Patient Can Go To The Location Of Their Choice, 11/24/2023 16:13:58 vitamin B12 + folate, serum or blood 2023 024 [facility] (Centralized Electronic Ordering - All Locations), Patient Can Go To The Location Of Their Choice, 11/24/2023 16:13:58 CBC w/ auto diff 2023 024 [email or web address] (Centralized Electronic Ordering - All Locations), Patient Can Go To The Location Of Their Choice, 11/24/2023 16:12:33 TSH + free T4, serum 2021 022 [facility], [address] [place] [address], [id number], 11/11/2022 11:48:05 abo group + rh type, blood 2021 [facility], [address] [place] [address], [id number], 09/01/2022 16:05:18 Referral None recorded. Procedures None recorded. Surgeries None recorded. Imaging None recorded. Medication Orders None recorded. Patient TargetsNo targets recorded. Patient InstructionsNo instructions recorded. Reason for Referral None Reported. Results Created Date Observation Date Name Description Value Unit Range Abnormal Flag Note LastModifiedBy Organization Detail LastModifiedTime Result Notes None recorded. Problems Name Problem SNOMED Code Status Onset Date Resolution Date Notes Provider Name and Address Organization Details Recorded Time Migraine 56575324 Active 2021 STEPHON DICKSON [address] [place] [address], [address], [facility] 2 10:16:40 Allergic rhinitis 21836685 [facility] 15:[facility]12 Eczema 11180198 Active 2021 STEPHON DICKSON [address] [place] [address], [address], [facility] 2 15:52:54 Syncope 730340184 Active 2021 STEPHON DICKSON [address] [place] [address], [address], [facility] 2 15:53:11 Anxiety 44379023 Active 2021 STEPHON DICKSON [address] [place] [address], [address], [facility] 2 15:53:36 Depressive disorder 69861299 Active 2021 STEPHON DICKSON [address] [place] [address], [address], [facility] 2 15:53:42 Anemia 802975896 Active 2021 STEPHON DICKSON [address] [place], [address], [facility] 2 16:01:44 Irritable bowel syndrome 22089465 Active 2021 STEPHON DICKSON [address] [place], [address], [facility] 2 16:04:11 Cobalamin deficiency 331041929 Active 2021 Steve GeoffreySabas Vásquezscott, DO [address] [place], [address], [facility] 2 21:13:16 Terminatio n of 11924208 Active 2023 STEPHON DICKSON [address] [place], [address], 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 Medical Equipment None Reported. Allergies Allergen ID Allergen Name Allergen Category Reaction Reaction Severity Criticality Documentation Date Start Date Code Code System Note Provider Name and Address Organization Details Recorded Time 6148 POLLEN EXTRACTS environme nt,medica tion Not available Not available Not available 09/01/2022 14271 6 RxNorm [facility] 15:31:23 6149 cat dander environme nt Not available Not available Not available 09/01/2022 [id number] [facility] 2 15:31:30 6150 latex environme nt,medica tion Not available Not available Not available 09/01/2022 24522 91 RxNorm [facility] 2 15:31:38 6151 rabbit dander environme nt Not available Not available Not available 09/01/2022 [id number] [facility] 2 15:31:55 6152 mold extract environme nt Not available Not available Not available 09/01/2022 05574 8 RxNorm Ramona villalba [facility] 2 15:32:03 Medications Name Sig [...] and Address Organization Details Last Updated DateTime 2 160.02 cm 25.7 kg/m2 17301.8 9 g 107 /min 98 % 98 % 118 mm[Hg] 70 mm[Hg] Ramona Reyes [facility] 2 15:39:33 Date Recorded Body height Body mass index (BMI) Body weight Heart rate Oxygen saturation Oxygen saturation in Arterial blood by Pulse oximetry Systolic blood pressure Diastolic blood pressure Provider Name and Address Organization Details Last Updated DateTime 5 160.02 cm 29.2 kg/m2 79890.6 6 g 76 /min 98 % 98 % 148 mm[Hg] 94 mm[Hg] Bharati Clayton [facility] 5 16:13:13 Social History Question Answer Notes LastModified by Organizat ion Details LastModified Time Tobacco Smoking Status Never Smoker did smoke weed prior, not anymore STEPHON DICKSON [address] [place], [address], [facility] 09/01/2022 15:46:02 Do You [...] Or The Highest Degree You Have Received? [id number] Information not available 09/01/2022 How Many Days [...] Anxious, Or Unable To Sleep At Night)? [id number] Information not available 09/01/2022 Do You Use [...] 2021 15:34:17 Father Malignant tumor of prostate [id number] Not available 2024 16:06:46 Paternal Grandfather Malignant tumor of prostate Not available 2024 16:06:46 Paternal Grandfather Malignant tumor of pancreas [id number] Not available 2024 16:06:46 Paternal Grandmother Malignant tumor of breast [id number] Not available 2024 16:06:46 Paternal Grandmother Acute stroke Not available 12/14/2024 16:06:46 Medical History No medical history recorded. Gynecological HistoryNo gynecological history recorded. Obstetrics History GPAL:G 0 P 0 0 1 0 Type Value Induced 1 Past Encounters Encounter ID Performer Location Encounter Start Date Encounter Closed Date Diagnosis/Indication Diagnosis SNOMED-CT Code Diagnosis ICD10 Code Diagnosis Note [id number] STEPHON DICKSON [facility] [address] [facility], [place] [address] 09/01/2022 15:21:44 09/02/2022 13:51:47 Syncope 744442145 R55 since childhood Migraine 78847718 G43.00 9 stable Allergic rhinitis 806490 04 J30.1 stable Eczema 67658502 L20.84 stable currently Depressive disorder 3548 9007 F32.0 will monitor her depression Anxiety 38405543 F41.1 will monitor her anxiety Family his tory of Thyroid disorder 447865375 Z83.49 will set up with a TSH check Anemia 320389536 D64.9 will fu for patient knowledge for use for donating blood Irritable bowel syndrome 98354133 K58.9 mild, already worked up, IBS as a diagnosis [id number] STEPHON D[address]SON [facility] [address] [facility], [employer] [place] [address] 11/24/2023 08:37:02 11/25/2023 16:20:25 Depressive disorder 26737007 F32.0 will monitor her depression Family his tory of Hypothyroidism 691276560 Z83.49 family hx of thyroid disease, due for yearly screening Cobalamin deficiency 190 052970 E53.8 will set up with vitamin 12 screening, hx of cobalamin def, hasn't needed injections in awhile Terminatio n of 52333193 O04.89 elective abortive procedure, doing good, no complicati ons [id number] [facility] D[facility] [address] [facility],[place] [address] 12/14/2024 15:58:46 12/14/2024 16:52:30 Family history of diabetes mellitus type 2 775840009 Z83.3 will set up with lab work Family his tory of Hypothyroidism 448044096 Z83.49 family hx of thyroid disease, due for yearly screening Cobalamin deficiency 190 157452 E53.8 will set up with vitamin 12 screening, hx of cobalamin def, hasn't needed injections in awhile Health Concerns Section Related Observation LastModified by Organization Detai ls LastModified Time None Recorded Concern Status LastModified by Organization Details LastModified Time None Recorded Advance Directives Directive N: Payers Encounter Date Sequence Insurance Name Policy Number Policy Galarza Covered Member ID Galarza Member ID Guarantor Name 09/01/2022 1 [place]ICA[place] - DOS PRIOR TO 20[address] - [facility] (MEDICAID) Arcelia R Gibson [id number] Arcelia Gibson 11/24/2023 1 [place]: [facility] Arcelia R Gibson [id number] Arcelia Gibson 12/14/2024 1 [facility] PUBLIC PLANS [facility] TYPE I (HMO) [id number] Arcelia R Gibson [id number] Arcelia Gibson Notes Date Note Type Note Provider Name and Address Organization Details Recorded Time 2 text/html NPV: allergies: listed as chart PMH: h/x of allergic rhinitis: stable per patientuses the neti-pot which is helpful migraine: combination of tension headaches and migrainesrelated to allergiesthe patient denies more than 15 headaches days in a month varicose veins: stable, mild in the back of the legs vagal syncope: since childhood, cardiac testing is normal depression: stableanxiety: stable patient has a hx of Grave's Disease STEPHON DICKSON [address] [facility], [place], [address], [facility] 09/01/2022 16:05:27 4 text/html fu hypothyroidism The patient is participating in this appointment via telemedicine communication with a phone call/video calling service (Doxy)The patient consents to use of these platforms in place of an in-person appointment due to either sick symptoms the patient is presenting with or current office closure due to COVID exposure in order to keep our office staff and patients safe depressive d/o: stablemood stable today, Aox3, good judgement recent elective procedure for an abortionno complications with the mifepristone-misoprosto ldid not have excess bleeding, no pelvic cramping or pain pt has a history of vitamin b12 defneeds recheck STEPHON DICKSON [address] [place], [address], [facility] 11/24/2023 16:20:21 5 text/html fu hypothyroidism screening patient would like bw to r/o hypothyroidismkeeps having recurrent yeast infection has fam hx of diabetes, recommended lab work added for a1c checkif not possible hormonal imbalance vs change from hormonal bc to natural bc will fu with patient after bw STEPHON DICKSON [address] [place], [address], [facility] 12/14/2024 16:23:27 OBGyn Episode No OBEpisode recorded.
--- OUTSIDE RECORDS SUMMARY | 2024-12-14 19:43 | XMS_ITS ---
Author Organization [facility] Address [facility] [address] [place], [place] [phone] Care Team Providers Care Container Finisher Name Role Phone BOBBY MELGAR Unavailable [phone] REASON FOR VISIT Infection Screening Social History Sex Assigned At : Social History Observation Description Sex Assigned At Female Encounters Encounter Location Date Provider Diagnosis [facility] [address] [place], [place] [phone] 12/01/2024 BOBBY MELGAR Plan Of Treatment No Information Progress Notes * Arcelia KIMBROUGHDOB:1990 (34 yo F)Acc No.[id number]:12/01/2024 Progress Notes Patient:?Arcelia KIMBROUGH Provider:?Bobby Bray CNM :1990???Age:34 Y???Sex:Female D ate:12/01/2024 Address:[address] [place] [address], [place], [place] Subjective: * Chief Complaints: * ???1. Infection Screening. * Medical History:? Objective: * Vitals:? Assessment: Plan: * Treatment: * Billing Information: * Visit Code:? * Procedure Codes:? * Electronic signature of JAQUELINE MELGAR CNM on 12/14/2024 at 07:42 PM EST Sign off status: Pending * Provider:Venktaa Bray CNM Date :?12/01/2024 Generated for Quique villalobos/Brittnee/eTransmitting on:?12/14/2024 07:42 PM EST
--- OUTSIDE RECORDS SUMMARY | 2024-12-14 19:43 | XMS_ITS ---
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 Name Role Phone BOBBY MELGAR Unavailable [phone] Allergies Allergen (clinical drug ingredient) Drug/Non Drug Allergy documented on EMR Reaction Allergy Type Onset Date Status Rabbit dander Rabbit dander (uncoded) Unknown Allergy Active Cat dander Cat Dander Unknown Allergy Active Dust Mites Unknown Allergy Active Latex Latex Unknown Allergy Active Mold Unknown Allergy Active Pollen Pollen Unknown Allergy Active Results Component Value Reference Range Notes Trich vag by [id number] (Not yet reviewed by provider) Interpretation:Duplicate Order Performing Lab:[facility], [address] [place] [address], [facility], Phone - [phone], Director - Felice Notes/Report: Test(s) 420124- Atopobium vaginae; 045702- BVAB 2; 068118- Megasphaera 1 was developed and its performance characteristics determined by [facility]. It has not been cleared or approved by the Food and Drug Administration. Test(s) 954367-Uxpiutz albicans, CRISTAL; 820868-Hiajdfy glabrata, CRISTAL; 308906-Z parapsilosis/tropicalis; 698938-Tobyekp lusitaniae, CRISTAL; 292802-Egfzekj krusei, CRISTAL was developed and its performance characteristics determined by [facility]. It has not been cleared or approved by the Food and Drug Administration. Trich vag by CRISTAL TNP Duplicate p rocedure ordered. Wet Mount Reviewed date:08/11/2024 08:48:00 AM Interpretation:Few clue seen ,no whiff Performing Lab: Notes/Report: Few clue seen ,no whiff Clue Cells none WBC none Hyphae none Trichomonas none pH 4.5 GELY Prep no whiff or hyphae NuSwab VG+, Laura [id number] Reviewed date:08/12/2024 01:30:13 PM Interpretation: Performing Lab:[facility], [address], [place], Phone - [phone], Director - Felice Notes/Report: Test(s) 480721- Atopobium vaginae; 263433- BVAB 2; 708942- Megasphaera 1 was developed and its performance characteristics determined by [employer]. It has not been cleared or approved by the Food and Drug Administration. Test(s) 300479-Mfnxnxu albicans, CRISTAL; 199716-Ltzpslh glabrata, CRISTAL; 809109-V parapsilosis/tropicalis; 471408-Qmiykrl lusitaniae, CRISTAL; 679635-Ywzdjvx krusei, CRISTAL was developed and its performance characteristics determined by [employer]. It has not been cleared or approved [...] Negative Negative Neisseria gonorrhoeae, CRISTAL Negative Negative REASON FOR VISIT Routine Testing ,reports recent UPI with new partner on 08/01/2024 ,aware of test accuracy .Hx of +BV and Yeast ,reports mild vaginal itching 'off and on ' ,not currently . Medications Medication SIG (Take, Route, Frequency, Duration) Notes Start Date End Date Status Vitamin D Not-Taking Fluconazole 150 MG 1 tablet Orally 1 ta blet today and another in 3-4 days if needed for 10 day(s) 03/09/2024 Not-Taking MetroGel-Vaginal 0.75 % 1 application at bedtime Vaginal Once a day for 5 days 03/09/2024 Not-Taking Multivitamin Active Probiotic Not-Taking Social History Sex Assigned At : Social History Observation Description Sex Assigned At Female Vital Signs Blood pressure systolic 20 mm Hg 08/08/20 24 Blood pressure diastolic 10 mm Hg 024 Height 20 in 08/08/2024 Weight 5 lbs 08/08/2024 BMI 8.79 kg/m2 08/08/2024 Declines vitals Encounters Encounter Location Date Provider Diagnosis [facility] [address] [facility] [address] [place], [place] [id number] 08/08/2024 BOBBY RAMÓN Encounter for screening for infections with a predominantly sexual mode of transmission Z11.3 ; Other problems related to lifestyle Z72.89 ; Encounter for screening for other infectious and parasitic diseases Z11.8 ; Counseling/Contracept rocio Advice Z30.09 and Vaginal Itch L29.3 Assessments Encounter Date Diagnosis (ICD Code) Assessment Notes Treatment Notes Treatment Clinical Notes Section Notes 08/08/2024 Encounter for screening for infections with [...] problems related to lifestyle (ICD-10 - Z72.89) 08/08/2024 Encounter for screening for other infectious and parasitic diseases (ICD-10 - Z11.8) 08/08/2024 Counseling/Contra ceptive Advice (ICD-10 - Z30.09) 08/08/2024 Vaginal Itch (ICD-10 - L29.3) Plan Of Treatment Treatment Notes Assessment Notes [...] Client agrees to plan Visit documented . Next Appt Details Follow Up: prn, Reason: Progress Notes * Arcelia ARREAGADOB:1990 (33 yo F)Acc No.[id number]:08/08/2024 Progress Notes Patient:?Arcelia ARREAGA Provider:?Bobby Bray CNM :1990???Age:33 Y???Sex:Female D ate:08/08/2024 Address:[address] [place] [address], [facility], [id number] Subjective: * Chief Complaints: * ???Routine Testing ,reports recent UPI with new partner on 08/01/2024 ,aware of test accuracy .Hx of + BV and Yeast ,reports mild vaginal itching 'off and on ' ,not currently . * HPI: ???Visit Narrative:?Reason for the visit:?Infection sxs.?Current form of control:?Cycle Tracking/FAM per brant ..?Presenting Symptoms:?Vaginal itching at times.?LMP:?08/02/2024.?Last date of UPI:?08/01/2024.?Other Notes for the Clinician:?Client presents for infection visit. Client reports UPI with new partner one week ago, aware of window periods, agrees to booking f/u visit in 6 weeks for STI screen. Client reports some vaginal itching, no other sxs presently. Client notes concerns about preventing and treating vaginal infections, reports hx of mutiple concurrent BV and yeast infection within past year. Client counseled on relationship between vaginal pH and infection risk as well as boric acid suppositories and relationship between major life changes and risk of vagnial infections. Client declines rx for BV or yeast should results come back reactive, client reports interest in other remedies.? * ROS:?As above. * Medical History:? * Drier Helper History:? control:?Client tracks her cycle.?Last menstrual period:?08/02/2024.?Last pap smear date:?2022- NILUnsure of last pap, maybe approx 2-3 years, NIL.?Menarche: ?Age of menarche?13 ???Periods:?every month, normal blood loss, every 26 days.?Sexual activity:?currently sexually active, with men.?Sexually Transmitted Diseases (STDs):?Chlamydia 2021, , Human papilloma virus (HPV)/condyloma 2009,.?Unprotected sex in the past 10 days?:?Yes.? * OB History:?Total pregnancies:?1.?Total living children:?0.?(s):?1.? * Surgical History:?Denies Pas t Surgical History * Hospitalization/Major Diagno stic Procedure:?Fainting concerns 2019 * Family History:? Father: prostate cancer, HBP, AFIB Mother's side: Diabetes type 2, acute stroke caused by a narrowing in artery from plaque buildup? Sister: plantar fasciitis. * Social History:?Food Access:?Food Access?The Client's current access to food is?Secure Food Access ???Housing:?Housing?The client's current living situation is:?stable housing ???Reproductive Life Plan:?Reproductive Life Plan?Do you want to have children??No, I don't want to have children ?How sure are you that you will be able to use your control method without any problems??Very sure ?People's plans change. Is it possible you or your partner could ever decide to become ??No ???Sexual History:?Sexual History?Sexual History Reviewed:?Partners, Practices, Protection/Past STIs ?Currently sexually active??Yes ?Sexually active with:?Men, Assigned Male at ?Number of male partners?1 one week ago ?Your sexual activities include:?oral intercourse, vaginal intercourse ?Do you use condoms??Yes ?Condoms are used:?regularly ?Date of last unprotected intercourse:?08/01/2024 ?Number of partners in past 3 months:?3 ?Number of partners in past year:?8 ?Does your partner(s) currently have any STIs??No ???HIV Risk Assessment:?Additional Questions?Is an HIV Risk Assessment being conducted??No ???PrEP for HIV:?PrEP for HIV?Is the client interested in beginning/continuing PrEP for HIV??No ???Relationships:?Relationships?Has the client experienced any of the following:?Harmful Relationships Client would like resources ?Emotionally?Yes ?Currently:?No ?Physically:?Yes ?Currently:?No ?Sexually:?Yes ?Currently?No ???Human Trafficking:?Human Trafficking?Experienced:?No ???Tobacco Use:?Tobacco Use?Do you/have you used tobacco??No ?Tobacco Smoking Status?Never smoker ???Drugs/Alcohol:?Drug/Alcohol Use?Do you or have you used drugs??Yes, currently ?By what route are you taking drugs? Please check all that apply:?Smoking ?Which drug(s) do you smoke??Marijuana ?When did you last use??-2023 ?Do you want to quit drugs??No ?Do you or have you used alcohol??Yes, currently Socially ???Counseling Provided:?Counseling Provided?The client was counseled on the following topics at this visit:?STIs, Control ?Please indicate the length of time, in minutes, that counseling was provided.?10 ?Counseling Was Provided By:?saad * Medications:?TakingMultivita min Taking Multivitamin Not-Taking/PRNProbiotic Vitamin [...] Declines vitals. * Examination: ???General Examination: ?GENERAL APPEARANCE:?normal, well developed, well nourished.?PSYCH:?alert, oriented.?Genitourinary - Female: ?EXTERNAL GENITALS:?normal.?No genital lesions seen? Minimal D/C at introitus /vaginal vault ,Nu-Swab? and Wet Mount taken. Assessment: * Assessment: 1.?Encounter for screening f or infections with a predominantly sexual mode of transmission - Z11.3 (Primary)???2.?Other problems related to lifestyle - Z72.89???3.?Encounter for screening for other infectious and parasitic diseases - Z11.8?? 4.?Counseling/Contraceptive Advice - Z30.09???5.?Vaginal Itch - L29.3??? Plan: * Treatment: 2.?Encounter for screening f or other infectious and parasitic diseases?LAB: Trich vag by [id number] (Collection Date & Time - 08/08/2024 06:43 PM) 3.?Vaginal Itch?LAB: Wet Mount (Collection Date & Time - 08/08/2024)?Few clue seen ,no whiff ? Value Reference Range ?Clue Cells none * ?WBC none * ?Hyphae none * ?Trichomonas none * ?pH 4.5 * ?GELY Prep no whiff or hyphae * Labs:? * ?Lab: NuSwab VG+, [id number] (Collection Date & Time - 08/08/2024 06:43 PM) ? Value Reference Range ?Atopobium vaginae High - 2 A - Sco re * ?BVAB 2 High - 2 A - Score * ?Megasphaera 1 High - 2 A - Score * ?Laura albicans, CRISTAL Negative N egative - * ?Laura glabrata, CRISTAL Negative N egative - * ?C parapsilosis/tropicalis Negative Negative - * ?Laura lusitaniae, CRISTAL Negative Negative - * ?Laura krusei, CRISTAL Negative Neg ative - * ?Trich vag by CRISTAL Negative Negati ve - * ?Chlamydia trachomatis, CRISTAL Negative Negative - * ?Neisseria gonorrhoeae, CRISTAL Negative Negative - * [employer], support 07/20 12:10:08 : This order was created by the Interface.BOBBY MELGAR 08/11/2024 01:00:57 PM EDT >Noted results .Client had declined any Tx at TH visit of 08/08/2024 .TC to client to F/U .LM to CB .Discussed results with client .Declines Rx at this time .Will use 'home remedies ' .Advised to F/U prn if wants Rx .This lab was reviewed by BOBBY MELGAR on 08/12/2024 at 13:30 PM EDT * Procedure Codes:?67057 Wet M [id number] Chlamydia - Amplified [id number] Gonorrhea - Amplified probe * Follow Up:?prn * Billing Information: * Visit Code:? 84487 Existing - Low Complexity (IN USE). * Procedure Codes:? 25997 Wet Mount. 23415 Chlamydia - Amplified probe. 82092 Gonorrhea - Amplified probe. * Sign off status: Completed true * Provider:?Bobby Bray CNM Date :?08/08/2024 Generated for Printi ng/Fadanyg/eTransmitting on:?12/14/2024 07:43 PM EST History and Physical Notes * HPI (History of Present Illness) Category Sub-Category Detail Notes Category Not es Visit Narrative Reason for the visit: Infection sxs Current form of control: Cycle Tra cking/FAM per brant . Presenting Symptoms: Vaginal itching at times Other Notes for the Clinician: Client pr esents for infection visit. Client reports UPI with new partner one week ago, aware of window periods, agrees to booking f/u visit in 6 weeks for STI screen. Client reports some vaginal itching, no other sxs presently. Client notes concerns about preventing and treating vaginal infections, reports hx of mutiple concurrent BV and yeast infection within past year. Client counseled on relationship between vaginal pH and infection risk as well as boric acid suppositories and relationship between major life changes and risk of vagnial infections. Client declines rx for BV or yeast should results come back reactive, client reports interest in other remedies LMP: 08/02/2024 Last date of UPI: 08/01/2024 Examination Category Sub-Category Detail Notes Category Not es Genitourinary - Female EXTERNAL GENITALS: normal No genital lesions seen Minimal D/C at introitus /vaginal vault ,Nu-Swab and Wet Mount taken General Examination GENERAL APPEARANCE: normal, well developed, well nourished PSYCH: alert, oriented
[2024-12-14 20:03] LABS: Vitamin B12 582 pg/mL (200-900)
[2024-12-14 20:20] LABS: T4 Thyroxine 6.6 ug/dL (4.5-12.0)
== END 2024-12-14 16:22 | disposition home or self-care (01) ==
LOC: HO.MANLDS 16:21
PROVIDERS: Visit Provider Physician Assistant
DX: E53.8 Deficiency of other specified B group vitamins (principal); Z83.49 Family history of other endocrine, nutritional and metabolic diseases; Z83.3 Family history of diabetes mellitus; Z13.1 Encounter for screening for diabetes mellitus; Z13.29 Encounter for screening for other suspected endocrine disorder; Z13.0 Encounter for screening for diseases of the blood and blood-forming organs and certain disorders involving the immune mechanism
CPT/HCPCS: 36415; 80053; 82607; 82728; 83036; 83540; 84436; 84443; 84481; 85025